=== PATIENT | male | born 1965 | race Caucasian/White ===

== ENCOUNTER 2019-08-26 10:05 | Emergency (ER) | payer OTHER, SELFPAY ==
--- NOTE | 2019-08-26 10:20 | ED.EYEPROB ---
HPI - Eye Problem General Chief complaint: Eye Problems Stated complaint: L/eye sore Time Seen by Provider: 08/26/19 10:30 Source: patient and RN notes reviewed Mode of arrival: ambulatory Limitations: no limitations History of Present Illness HPI Narrative: 53-year-old male presents with concern for soreness of his left lower eyelid for 4 days. Denies any injury, trauma, foreign body. Denies wearing contact lenses. Denies visual changes or drainage. MD chief complaint: eye pain Related Data Home Medications Medication Instructions Recorded Confirmed alosetron [Lotronex] mg 08/26/19 losartan 08/26/19 Allergies Allergy/AdvReac Type Severity Reaction Status Date / Time Penicillins Allergy Rash Verified 08/26/19 10:36 Review of Systems Review of Systems: Narrative: CONSTITUTIONAL: Denies malaise, chills, sweats, or fever. EYES: Denies visual changes, redness, or discharge. Reports left lower eyelid swelling and tenderness. ENT: Denies rhinorrhea, congestion, sinus pain, otalgia or sore throat. SKIN: Denies bruising, redness NEUROLOGIC: Denies headache. All systems reviewed & are unremarkable except as noted in HPI and below PMFSH Comments At time of signature, agree with nursing past medical, surgical, social and family history. There is no relevant family history pertinent to the presenting complaint Exam Narrative: Exam Narrative: GENERAL: Well-appearing, well-nourished, and in no acute distress. HEAD: Normocephalic, atraumatic. EYES: PERRLA, conjunctivae clear, and EOMI. No nystagmus. Small hordeolum noted on the inner corner of the left lower eyelid. Pinpoint white papule noted on the sclera at approximately 9:00 in relation to the pupil. Sclera or conjunctive a noninjected. ENT: Nares clear, no rhinorrhea or epistaxis. Mucous membranes moist. NECK: Supple. CHEST: No respiratory distress. Speaks in full sentences. HEART: Regular rate and rhythm. SKIN: Warm, dry, no rash. NEURO: Alert and oriented x3. PSYCH: Normal mood and affect Course Course Emergency Course: Patient is aware of diagnosis, understands and agrees to treatment plan. Anticipatory guidance given. Patient agrees to follow-up as directed and is aware of reasons to seek care at the emergency department. Portions of this record may have been created with voice recognition software Vital Signs Vital signs: Vital Signs Temperature 98 F 08/26/19 10:32 Pulse Rate 62 08/26/19 10:32 Respiratory Rate 20 08/26/19 10:32 Blood Pressure 134/85 08/26/19 10:32 Pulse Oximetry 100 08/26/19 10:32 Temperature 98 F 08/26/19 10:32 Pulse Rate 62 08/26/19 10:32 Respiratory Rate 20 08/26/19 10:32 Blood Pressure 134/85 08/26/19 10:32 Pulse Oximetry 100 08/26/19 10:32 Reviewed. Patient has current diagnosis of hypertension MDM - Eye Problem MDM Narrative Medical decision making narrative: Consideration of the following conditions may be warranted for the presenting problem, they are not final diagnoses: Bacterial conjunctivitis, allergic conjunctivitis, viral conjunctivitis, foreign body, blepharitis, chalazion, hordeolum, corneal abrasion, pterygium, pinguecula. Exam findings show no acute concerns or changes; patient is non-toxic appearing and is in no distress. Patient is appropriate for outpatient treatment and follow-up. Critical Care Time Critical Care Time Critical Care Time: No Discharge Plan Discharge Clinical Impression: Hordeolum externum of left lower eyelid Patient Disposition: Home, Self-Care Condition: Stable Instructions: Radha (ED) Additional Instructions: Avoid touching or rubbing your eye. Apply warm moist compress to the eye 3-4 times daily. Use eyedrops as directed. Follow-up with PCP or safety belt installer for further evaluation. [employer] [facility] Vicky Lerma, [place] [address] Prescriptions: New polymyxin B sulf-trimethoprim [Polytrim] 10,
[2019-08-26 10:32] VITALS: BP 134/85; PULSE 62; RESP 20; TEMP 36.6; O2SAT 100
== END 2019-08-26 11:13 | disposition home or self-care (01) ==
PROVIDERS: Emergency Provider Nurse Practitioner
DX: H00.015 Hordeolum externum left lower eyelid (principal); I10 Essential (primary) hypertension
CPT/HCPCS: 99203; A9270; G0463